=== PATIENT | male | born 1950 | race Asian ===

== ENCOUNTER 2017-02-12 17:00 | Observation (INO) | payer OTHER ==
[~2017-02-12] VITALS: Ht 162.6 cm; Wt 73.0 kg
[~2017-02-12 17:00] MED LIST: ASPIRIN EC81 MG PO; C 250 PO; CALCIUM600 M1 PO; CIPROFLOXACN500 MG PO; DILAUDID 2MG2 MG/TAB PO; FISH OIL1000 MG; LISINOPRIL20 MG PO; MULTI VIT PO; NIACIN SR500 M1; NORVASC5 MG PO; PERCOCET 10/31 COMBO PO; PNEUMOVAX 23 IM; PREVNAR 13 IM; PROAIR HFA IN; PYRIDIUM200 MG PO; SAW PALMETT4 PO; TAMSULOSIN0.4 MG PO; TENORMIN25 MG PO; TOPROL XL100 MG OR; TUSSIONEX1 ML PO; VITAMIN B-1100 M1 PO; ZPAK PO
[2017-02-12 18:03] LABS: HEMATOCRIT 33.3 % (39.0-50.0); MEAN CELL VOLUME 97.1 fL CALC (80.0-100.0); MEAN CORPUSCULAR HGB 32.1 pG CALC (26.0-32.0); NEUT# 8.69 thou/uL (1.82-7.42); RED BLOOD COUNT 3.43 mill/uL (4.70-6.10); RED CELL DISTRI WIDTH 12.8 % (11.5-15.5)
[2017-02-12 18:17] VITALS: BP 134/78
[2017-02-12 18:21] LABS: ANION GAP 12 (6-22 (CALC)); BUN 11 mg/dL (8-23); BUN/CREATININE RATIO 13 (12-20 (CALC)); CALCIUM 8.4 mg/dL (8.4-10.2); CARBON DIOXIDE 27 mmol/l (22-30); CHLORIDE 104 mmol/l (95-108); CREATININE 0.9 mg/dL (0.7-1.3); GFR > 60 ML/MIN (>=60 (CALC)); GFR FOR AFR.AMER. > 60 ML/MIN (>=60 (CALC)); GLUCOSE 125 mg/dL (82-115); POTASSIUM 3.6 mmol/l (3.5-5.1); SODIUM 139 mmol/l (137-146)
[2017-02-12] MEDS ORDERED: B-COMPL12 (18:29)
[2017-02-12] MEDS ORDERED: LOSARTAN POT100 MG PO (18:29)
[2017-02-12] MEDS ORDERED: SAW PALMETT3 PO (18:30)
[2017-02-12] MEDS ORDERED: D3400 UNI1 PO (18:30)
[2017-02-12] MEDS ORDERED: MICROZIDE12.5 MG PO (18:34)
[2017-02-12 19:05] VITALS: BP 120/81
--- NOTE | 2017-02-12 19:30 | NUR ---
PATIENT SITTING ON THE SIDE OF THE BED-ALERT AND ORIENTEDX3. PATIENT HAS FINISHED 1ST BOTTLE OF CITRATE OF MAG AT THIS TIME. PATIENT WITH IV SITE TO RIGHT FOREARM INTACT-STARTED BY ANESTHESIA PAINTER ROUGH. SITE APPEARS HEALTHY AT THIS TIME. PATIENT STATES THAT HE HAS BEEN HAVING MAROON STOOLS WITH CLOTS FOR LAST 2 DAYS. PATIENT IS FOR COLONOSCOPY IN THE AM WITH DR. DUQUE. TAKING CLEAR LIQUIDS TONIGHT AND THEN NPO AFTER MN. VERBALIZES UNDERSTANDING. NO NAUSEA OR VOMITTING. NO PAIN. CALL LIGHT IN REACH. WILL CONT TO MONITOR.
[2017-02-12 19:32] LABS: ACT PARTIAL THROMBO TIME 23.8 SECONDS (20.0-32.5); INTERNATIONAL NORMALIZED RATIO 0.9 RATIO (0.7-1.3); PROTHROMBIN TIME 10.2 SECONDS (9.0-12.5)
--- NOTE | 2017-02-12 21:15 | NUR ---
PATIENT STATES THAT STILL HAVING CIRA STOOLS-SECOND BOTTLE OF CITRATE OF MAG GIVEN. WILL CONT TO MONITOR.
--- NOTE | 2017-02-12 22:30 | NUR ---
PATIENT RESTING IN BED-STATES THAT HIS STOOLS ARE STARTING TO CLEAR UP. IVF LR PATENT AND INFUSING AT 125CC/HR VIA RIGHT FOREARM SITE. NO COMPLAINTS AT THIS TIME. CALL LIGHT IN REACH. WILL CONT TO MONITOR.
[2017-02-12 23:40] VITALS: BP 114/70
[2017-02-13 04:35] VITALS: BP 124/81
--- NOTE | 2017-02-13 04:45 | NUR ---
PATIENT RESTING IN BED-STATES THAT HIS STOOLS ARE NOW CLEAR-NO FURTHER BLEEDING OR CLOTS NOTED. REMAINS NPO FOR COLONOSCOPY THIS AM-CONSENT SIGNED. IVF PATENT AT 125CC/HR. SITE REMAINS HEALTHY. CALL LIGHT IN REACH. WILL CONT TO MONITOR.
--- NOTE | 2017-02-13 06:24 | NUR ---
PATIENT UP TO VOID-TO ENDO VIA STRTCHER.
--- NOTE | 2017-02-13 07:12 | NUR ---
REPORT RECEIVED, PT.OFF UNIT TO ENDO.
[2017-02-13 08:10] VITALS: BP 125/83
--- NOTE | 2017-02-13 08:10 | NUR ---
PT.ON FLOOR FROM [facility]. PT.IS IN GOOD CONDITION, V/S ARE 125/83, [id number]%,[id number]. POST-OP ORDERS ARE DISCHARGE ORDERS. OR NURSE UPON REPORT STATED PT.CAN GO HOME AND IS ON REGULAR DIET TOLERATED. AN XRAY "PRE-OP FOR KIDNEY STONES VERIFICATION" WAS ORDERED, I CALLED XRAY WHO REPORTED THIS "ORDERED IN ERROR/SHOULD HAVE BEEN CANCELLED." PT.WILL BE DISCHARGED ORDERS PROVIDE. DAUGHTER IS W/PT.AT THIS TIME AND PT.IS BEING MONITORED FOR V/S.
--- NOTE | 2017-02-13 12:14 | NUR ---
PT. DISCHARGED OFF THE FLOOR IN GOOD CONDITION, SELF AMBULATORY W/ AT SIDE.
== END 2017-02-13 12:14 | disposition home or self-care (01) | DRG 379 ==
LOC: MS2 17:00
PROVIDERS: ADMIT Surgery; ATTEND Surgery
PROC: 0DJ08ZZ Inspection of Upper Intestinal Tract, Via Natural or Artificial Opening Endoscopic (ICD-10-PCS; principal; 2017-02-13)
PROC: 0DJD8ZZ Inspection of Lower Intestinal Tract, Via Natural or Artificial Opening Endoscopic (ICD-10-PCS; 2017-02-13)
DX: K62.5 Hemorrhage of anus and rectum (principal); I10 Essential (primary) hypertension; K64.8 Other hemorrhoids; K44.9 Diaphragmatic hernia without obstruction or gangrene; K57.30 Diverticulosis of large intestine without perforation or abscess without bleeding
CPT/HCPCS: G0378; G0379

== ENCOUNTER 2017-12-23 11:44 | Emergency (ER) | payer OTHER ==
[~2017-12-23] VITALS: Ht 162.6 cm; Wt 73.0 kg
[~2017-12-23 11:44] MED LIST changes: +B-COMPL12; +D3400 UNI1 PO; +LOSARTAN POT100 MG PO; +MICROZIDE12.5 MG PO; +SAW PALMETT3 PO
[2017-12-23] MEDS ORDERED: AVODART0.5 MG PO (11:56)
[2017-12-23 12:18] LABS: HEMATOCRIT 45.9 % (39.0-50.0); HEMOGLOBIN 15.3 g/dl (14.0-18.0); IMMATURE GRANULOCYTES 2.2 % (0.0-5.0); MEAN CORPUSCULAR HGB CONC 33.3 g/L CALC (32.0-36.0); NEUT# 6.24 thou/uL (1.82-7.42); RED BLOOD COUNT 4.78 mill/uL (4.70-6.10); RED CELL DISTRI WIDTH 13.2 % (11.5-15.5)
[2017-12-23 12:40] LABS: ALBUMIN 4.3 g/dL (3.2-5.0); ALKALINE PHOSPHATASE 77 u/l (38-126); ANION GAP 14 (6-22 (CALC)); BILIRUBIN, TOTAL 0.5 mg/dL (0.0-1.4); BUN 13 mg/dL (8-23); BUN/CREATININE RATIO 15 (12-20 (CALC)); CARBON DIOXIDE 28 mmol/l (22-30); CHLORIDE 103 mmol/l (95-108); CREATININE 0.9 mg/dL (0.7-1.3); GFR > 60 ML/MIN (>=60 (CALC)); GFR FOR AFR.AMER. > 60 ML/MIN (>=60 (CALC)); POTASSIUM 3.4 mmol/l (3.5-5.1); SGOT/AST 40 u/l (19-48); SGPT/ALT 50 u/l (11-66); SODIUM 142 mmol/l (137-146); TOTAL PROTEIN 7.7 g/dL (6.3-8.2)
[2017-12-23 12:43] LABS: ACT PARTIAL THROMBO TIME 26.7 SECONDS (20.0-32.5); D-DIMER 0.63 mg/L (0.19-0.60)
[2017-12-23 12:51] LABS: MYOGLOBIN 58 ng/mL (0 - 121)
[2017-12-23 14:20] VITALS: BP 139/92
[2017-12-23] MEDS ORDERED: K-DUR/KLOR-CON20 MEQ PO (14:20)
== END 2017-12-23 14:29 | disposition home or self-care (01) | DRG 204 ==
LOC: ED 11:44
PROVIDERS: Emergency Medicine
DX: R06.00 Dyspnea, unspecified (principal); I49.9 Cardiac arrhythmia, unspecified; I10 Essential (primary) hypertension